=== PATIENT | female | born 1995 | race African-American/Black ===

== ENCOUNTER 2016-05-04 19:00 | Observation (INO) | payer SELFPAY ==
[~2016-05-04] VITALS: Ht 170.2 cm; Wt 75.3 kg
[~2016-05-04 19:00] MED LIST: CEPH-264 PO; NITR100C62 PO
[2016-05-04] MEDS ORDERED: 0.9 % SODIUM CHLORIDE 10 ML DISP.SYRIN. IV PRN (19:45)
[2016-05-04] MEDS ORDERED: MAG HYDROX/AL HYDROX/SIMETH 30 ML ORAL.SUSP PO PRN (19:45)
[2016-05-04] MEDS ORDERED: TERBUTALINE 1 MG/ML VIAL. SQ PRN (19:45)
[2016-05-04] MEDS ORDERED: ZOLPIDEM 5 MG TABLET. PO PRN (19:45)
[2016-05-04] MEDS: ACETAMINOPHEN 500 MG TABLET PO PRN (20:19)
[2016-05-04] MEDS: ONDANSETRON PF 4 MG/2 ML VIAL. IV PRN (20:19)
[2016-05-04] MEDS: IV DEXTROSE 5%-LACT RINGERS 1,000 ML IV SCH (20:19)
[2016-05-04] MEDS: OSELTAMIVIR 75 MG CAPSULE PO SCH (20:19)
[2016-05-04] MEDS: GUAIFENESIN 200 MG/10 ML LIQUID. PO PRN (20:25)
[2016-05-04 20:43] VITALS: BP 107/61
[2016-05-04 20:43] LABS: BASO % 0 % (0-3); EOS % 0 % (0-3); HEMATOCRIT 29.8 % (36.0-47.0); HEMOGLOBIN 9.9 g/dL (12.0-15.5); LYMPH # 0.9 x10^3/uL (1.0-4.8); LYMPH % 11 % (24-48); MEAN CORPUSCULAR HEMOGLOBIN 30 pg (25-35); MEAN CORPUSCULAR HGB CONC 33 g/dL (31-37); MEAN CORPUSCULAR VOLUME 90 fL (79-100); MONO % 11 % (0-9); NEUT % 78 % (31-73); PLATELET COUNT 146 x10^3/uL (140-400); RED BLOOD COUNT 3.32 x10^6/uL (3.50-5.40); RED CELL DISTRIBUTION WIDTH 14.2 % (11.5-14.5); WHITE BLOOD COUNT 8.4 x10^3/uL (4.0-11.0)
[2016-05-04 20:49] LABS: BILIRUBIN,URINE NEGATIVE (NEG); GLUCOSE,URINE NEGATIVE (NEG); NITRITE,URINE NEGATIVE (NEG); PROTEIN,URINE NEGATIVE (NEG-TRACE); UROBILINOGEN,URINE 0.2 mg/dL (0.2 mg/dL)
[2016-05-04 21:04] LABS: ALBUMIN 2.3 g/dL (3.4-5.0); ALBUMIN/GLOBULIN RATIO 0.5 (1.0-1.7); CALCIUM 8.4 mg/dL (8.5-10.1); CREATININE 0.8 mg/dL (0.6-1.0); GFR 108.5; POTASSIUM 3.5 mmol/L (3.5-5.1); TOTAL BILIRUBIN 0.2 mg/dL (0.2-1.0); TOTAL PROTEIN 6.7 g/dL (6.4-8.2)
[2016-05-04 21:05] LABS: BACTERIA,URINE MANY /HPF (0-FEW); SQUAMOUS EPITHELIAL CELL,UR MOD /LPF; WBC,URINE >40 /HPF (0-4)
[2016-05-04 21:27] LABS: OBC FLU VALID
[2016-05-04] MEDS ORDERED: PIPERACILLIN/TAZOBACTAM 3.375 GM in IV NORMAL SALINE 50ML 50 ML IV ONE (23:00)
[2016-05-05] MEDS: IV DEXTROSE 5%-LACT RINGERS 1,000 ML IV SCH ×2 (00:48→08:54)
[2016-05-05] MEDS: GUAIFENESIN 200 MG/10 ML LIQUID. PO PRN (00:55)
[2016-05-05] MEDS: ACETAMINOPHEN 500 MG TABLET PO PRN (03:43)
[2016-05-05] MEDS: ONDANSETRON PF 4 MG/2 ML VIAL. IV PRN (03:44)
[2016-05-05] MEDS: OSELTAMIVIR 75 MG CAPSULE PO SCH (08:54)
== END 2016-05-05 11:00 | disposition left against medical advice (07) ==
LOC: 3 SO LND 19:00
PROVIDERS: ADMIT Specialist; ATTEND Specialist
DX: O26.893 Other specified pregnancy related conditions, third trimester (principal); R52 Pain, unspecified; R51 Headache; R42 Dizziness and giddiness; R07.0 Pain in throat; O21.2 Late vomiting of pregnancy; R11.0 Nausea; Z3A.37 37 weeks gestation of pregnancy
CPT/HCPCS: 36415; 80053; 81001; 85027; 86850; 86900; 86901; 87804; 96361; 96365; 96375; 96376; G0378; G0379; J2405; J2543; 87086

== ENCOUNTER 2016-08-31 10:56 | Emergency (ER) | payer OTHER ==
[~2016-08-31] VITALS: Ht 170.2 cm; Wt 61.2 kg
[2016-08-31 11:05] VITALS: BP 122/79
[2016-08-31] MEDS ORDERED: DEXAMETHASONE SOD PHOS 4 MG/ML VIAL PO STA (11:18)
[2016-08-31] MEDS ORDERED: IPRATRPIUM/ALBUTEROL 0.5/2.5MG 3 ML NEBU. NEB ONE (11:30)
[2016-08-31] MEDS ORDERED: AZIT1PAC PO (11:35)
[2016-08-31] MEDS ORDERED: PROAIR HFA8.5 GM INH (11:35)
--- NOTE | 2016-08-31 11:35 | PHYS DOC ---
Past Medical History Past Medical History: UTI, Other Additional Past Medical Histor: miscarriage Past Surgical History: No Surgical History Alcohol Use: None Drug Use: None, Marijuana Adult General Chief Complaint Chief Complaint: COUGH HPI HPI Patient is a 21 year old [female presenting to the emergency department for evaluation of cough shortness of breath and not feeling well for the past 4-5 days. She says the cough is productive of yellow and green sputum and that she feels short of breath mostly when she is up walking around and playing with her son. She is breast-feeding currently and says that she also has runny nose sinus congestion and postnasal drip and sore throat. She denies any fevers chills nausea vomiting diarrhea dysuria hematuria or bloody sputum. She is in no obvious distress with normal vital signs. Review of Systems Review of Systems Constitutional: Denies fever or chills [] HENT: + nasal congestion and sore throat [] Respiratory: + cough and shortness of breath [] GI: Denies abdominal pain, nausea, vomiting, bloody stools or diarrhea [] Neurologic: Denies headache, focal weakness or sensory changes [] Current Medications Current Medications Current Medications Medications (Trade) Dose Ordered Sig/Jacqueline Start Time Stop Time Status Last Admin Dose Admin Albuterol/ Ipratropium (Duoneb) 3 ml 1X ONCE 08/31/16 11:30 08/31/16 11:31 Dexamethasone Sodium Phosphate (Decadron) 8 mg 1X STAT 08/31/16 11:18 08/31/16 11:20 DC Allergies Allergies Allergies Coded Allergies Type Severity Reaction Last Updated Verified No Known Drug Allergies 10/28/13 No Physical Exam Physical Exam Constitutional: Well developed, well nourished, no acute distress, non-toxic appearance. [] HENT: Normocephalic, atraumatic, bilateral external ears normal, pharynx slightly erythematous with postnasal drip. Boggy nasal turbinates and sinus congestion noted. Neck: Normal range of motion, no tenderness, supple, no stridor. [] Cardiovascular:Heart rate regular rhythm, no murmur [] Lungs & Thorax: Bilateral breath sounds diminished with inspiratory and expiratory wheezing. Current Patient Data Vital Signs Vital Signs Date Time Temp Pulse Resp B/P (MAP) Pulse Ox O2 Delivery O2 Flow Rate FiO2 08/31/16 11:05 98.2 107 18 98 Room Air 98.2 EKG EKG [] Radiology/Procedures Radiology/Procedures [] Course & Med Decision Making Course & Med Decision Making Patient with definite wheezing and diminished aeration so she was given Decadron and DuoNeb in the emergency department. She says that she feels much better and her repeat lung exam is improved as well. Her repeat vital signs are normal as well. Given she has productive sputum we'll go ahead and start on Zithromax and recommend [id number] Nasonex. Patient aware and agreeable with plan for discharge and verbalized understanding of the need for short-term follow-up in the strict ER return precautions discussed worsening pain fevers vomiting or other general concerns. Dragon Disclaimer Dragon Disclaimer This electronic medical record was generated, in whole or in part, using a voice recognition dictation system. Departure Departure Impression: Primary Impression: Upper respiratory infection Additional Impression: Wheezing Disposition: HOME, SELF-CARE Condition: GOOD Referrals: NO PCP (PCP) Patient Instructions: Acute Bronchitis Additional Instructions: USE OTC NASONEX FOR YOUR SINUS CONGESTION. GO BUY THIS WHEN YOU STOCK HOLDER YOUR PRESCRIPTIONS. FOLLOW WITH YOUR PCP IN 2 DAYS AND COME BACK TO THE ED SOONER WITH ANY NEW OR WORSENING SYMPTOMS. THANK YOU! Scripts Azithromycin (ZITHROMAX PACKET) 1 Gm Packet 1 PACKET PO ONCE, #1 PACKET Prov: KULWINDER MOELLER DO 08/31/16 Albuterol Sulfate (PROAIR HFA INHALER) 8.5 Gm Hfa.aer.ad 1 PUFF INH Q4HRS Y for SHORTNESS OF BREATH, #1 INHALER 0 Refills Prov: KULWINDER MOELLER DO 08/31/16 Problem Qualifiers Primary Impression: Upper respiratory infection URI type: unspecified URI Qualified Codes: J06.9 - Acute upper respiratory infection, unspecified KULWINDER MOELLER DO Aug 31, 2016 11:35
== END 2016-08-31 12:04 | disposition home or self-care (01) ==
LOC: ER 10:56
DX: J06.9 Acute upper respiratory infection, unspecified (principal); F12.10 Cannabis abuse, uncomplicated; Z87.440 Personal history of urinary (tract) infections
CPT/HCPCS: 94250; 94640; 99283; J1100; J7620